=== PATIENT | male | born 1960 | race Caucasian/White ===

== ENCOUNTER → 2016-11-15 | Outpatient (CLI) | payer MEDICAID ==
[2016-11-15 10:00] LABS: EKG EKG PERFORMED
[2016-11-15 10:21] LABS: CH 31.5; CHCM 32.4; HDW 2.41; MCH 31.7 pg (25.0-35.0); MCHC 32.5 g/dL (31.0-37.0); MCV 97.6 fL (80.0-100.0); Mean Platelet Volume 7.5; RBC 4.71 m/uL (4.30-5.90); RDW 13.3 % (11.5-15.5)
[2016-11-15 11:05] LABS: Anion Gap 12 mmol/L; Blood Urea Nitrogen 12 mg/dL (9-20); Calcium 9.5 mg/dL (8.4-10.2); Carbon Dioxide 22 mmol/L (22-30); Chloride 108 mmol/L (98-107); Glucose 111 mg/dL (74-99); Non-African American GFR(MDRD) >60 (>60 ml/min/1.73 sqM); Potassium 5.3 mmol/L (3.5-5.1); Sodium 142 mmol/L (137-145)
== END | disposition home or self-care (01) ==
LOC: LABPAT 09:36
PROVIDERS: ATTEND Urology
DX: Z01.818 Encounter for other preprocedural examination (principal); C67.2 Malignant neoplasm of lateral wall of bladder; R53.83 Other fatigue
CPT/HCPCS: 80048; 85027; 93005

== ENCOUNTER 2016-11-19 08:28 | Day surgery (SDC) | payer MEDICAID ==
[2016-11-17 11:49] VITALS: BMI 25.1
[~2016-11-19 08:28] MED LIST: DEXAMETHASONE SOD PHOSPHATE 10 MG/ML 1 ML VIAL IV ONE; HYDROmorphone 1 MG/ML 1 ML SYRINGE IVP PRN; LACTATED RINGERS 1,000 ML IV SCH; MIDAZOLAM 2 MG/2 ML VIAL IV PRN; ONDANSETRON 4 MG/2 ML VIAL IVP ONE; Pre Op ABX Message 1 EACH MISC MISCELLANE ONE; SCOPOLAMINE 1.5MG/72HR PATCH TRANSDERM ONE
[2016-11-19 08:43] VITALS: RESP 16
[2016-11-19] MEDS ORDERED: LIDOCAINE 1% 20 ML VIAL (10MG/ML) FOR IV START INTRADERMA ONE (08:50)
[2016-11-19] MEDS ORDERED: MITOMYCIN IV ONE (09:26)
[2016-11-19] MEDS ORDERED: MITOMYCIN MISCELLANE ONE ×2 (09:27→10:15)
[2016-11-19] MEDS ORDERED: ePHEDrine 50 MG/ML 1 ML AMP ONE (09:28)
[2016-11-19] MEDS ORDERED: fentaNYL (PF) 50 MCG/ML 2 ML AMP ONE (09:28)
[2016-11-19] MEDS ORDERED: SUCCINYLCHOLINE CHLORIDE 100 MG/5 ML SYR IV ONE (09:28)
[2016-11-19] MEDS ORDERED: LIDOCAINE 1% INJ 10MG/ML (20 ML MDV) ONE (09:28)
[2016-11-19] MEDS ORDERED: PROPOFOL 10 MG/ML 20 ML VIAL IV ONE (09:28)
[2016-11-19] MEDS ORDERED: MIDAZOLAM 2 MG/2 ML VIAL ONE (09:28)
[2016-11-19] MEDS ORDERED: IOHEXOL 350 MG/ML 50ML BOTTLE MISCELLANE ONE ×2 (10:03)
[2016-11-19] MEDS ORDERED: BELLADONNA-OPIUM 16.2-60 MG 1 EACH SUPP RECTAL ONE (10:24)
[2016-11-19 10:37] VITALS: TEMP 97.3
[2016-11-19] MEDS ORDERED: LEVOFLOXACIN 500MG-D5W PMX 500 MG in DEXTROSE/WATER 1 100ML.BAG IVPB STA (11:00)
--- NOTE | 2016-11-19 11:04 | FL ---
Fluoroscopy HISTORY: Pain 21 seconds fluoroscopy time supplied to the referring clinician. 8 intraoperative C-arm images docum ent the procedure. See dictated report from urology.
[2016-11-19 11:59] VITALS: BP 124/60; PULSE 90
--- NOTE | 2016-11-19 20:29 | OP ---
DATE OF SERVICE: 11/19/2016 SURGEON: BIBI CONTRERAS MD PREOPERATIVE DIAGNOSIS: Bladder cancer. POSTOPERATIVE DIAGNOSIS: Bladder cancer. OPERATION: Cystoscopy with bilateral retrograde pyelograms, transurethral resection of bladder tumors, and intravesical mitomycin-C instillation. ANESTHESIA: General. The patient is a 56-year-old male with a history of terminal hematuria. Cystoscopy performed in my office identified a papillary tumor on the left lateral wall near the bladder neck. Transurethral resection of the tumor and bilateral retrograde pyelograms are planned for further evaluation. PROCEDURE: The patient was taken the operating suite, where adequate general anesthesia via orotracheal intubation was instituted. The patient was placed in the dorsal lithotomy position with his legs suspended from padded Demetris stirrups. Pneumatic compression stockings were applied to the lower legs. The genitalia was prepped with Betadine soap, painted with Betadine solution and draped in a sterile fashion. Penile and prostatic urethra were traversed under direct vision using the 22 [place] cystoscope sheath and 30-degree lens. Anterior urethra was free of inflammatory lesion, tumor and stricture. Prostatic urethra showed evidence of moderate lateral lobe enlargement. No urothelial abnormalities were noted. The bladder was examined. Both ureteral orifices were of normal location and configuration and effluxed clear urine. Just inside the bladder neck on the left wall of the bladder was a papillary tumor measuring approximately 2 cm in greatest diameter. A smaller papillary tumor was located more medially and measured 4 or 5 mm in diameter. The findings were consistent with transitional cell carcinoma. Bilateral retrograde pyeloureterograms were performed using an 8 [place] cone-tipped catheter. The ureters and intrarenal collecting system on each side appeared normal. The cystoscope was withdrawn. The 25 [place] resectoscope sheath with visual obturator and 30-degree lens was passed through the urethra and into the bladder under direct vision. The tumors on the left wall of the bladder were resected down to the underlying muscle. Bleeding vessels were controlled using electrocautery. At the completion of procedure, no visible tumor remained. The base of each tumor site was then re-cauterized. The tumor fragments were removed from the bladder through the resectoscope and the resectoscope was withdrawn. The 16 [place] Rojas catheter was inserted; 20 mg of mitomycin-C and 20 mL of water was instilled into the bladder and the catheter was plugged. The patient tolerated the procedure well and left the operating room awake and in satisfactory condition. Blood loss during the procedure was less than 2 or 3 mL. There were no intraoperative complications. Mitomycin-C will be drained from the bladder in 2 hours. The catheter will remain in place for 48 to 72 hours. Further recommendations are dependent on the results of the tissue analysis. MTDD
== END 2016-11-19 12:25 | disposition home or self-care (01) ==
LOC: OR 08:28
PROVIDERS: ATTEND Urology
DX: C67.2 Malignant neoplasm of lateral wall of bladder (principal); N40.0 Benign prostatic hyperplasia without lower urinary tract symptoms; Z79.899 Other long term (current) drug therapy; Z87.891 Personal history of nicotine dependence
CPT/HCPCS: 84132; 88307; 74420; 52234; 52224; 53899; C1758; C2627; J2250; J1100; J2405; J2001; J9280; J3010; J0330; J2704; Q9967

== ENCOUNTER 2017-01-28 13:35 | Day surgery (SDC) | payer MEDICAID ==
[2017-01-27 10:38] VITALS: BMI 25.1
[~2017-01-28 13:35] MED LIST changes: -DEXAMETHASONE SOD PHOSPHATE 10 MG/ML 1 ML VIAL IV ONE; -HYDROmorphone 1 MG/ML 1 ML SYRINGE IVP PRN; -LACTATED RINGERS 1,000 ML IV SCH; -MIDAZOLAM 2 MG/2 ML VIAL IV PRN; -ONDANSETRON 4 MG/2 ML VIAL IVP ONE; -SCOPOLAMINE 1.5MG/72HR PATCH TRANSDERM ONE
[2017-01-28] MEDS ORDERED: LIDOCAINE 1% 20 ML VIAL (10MG/ML) FOR IV START INTRADERMA ONE (13:49)
[2017-01-28] MEDS ORDERED: LACTATED RINGERS 1,000 ML IV ONE ×2 (13:49)
[2017-01-28] MEDS ORDERED: ONDANSETRON 4 MG/2 ML VIAL IVP ONE (13:55)
[2017-01-28] MEDS ORDERED: DEXAMETHASONE SOD PHOSPHATE 10 MG/ML 1 ML VIAL IV ONE (13:56)
[2017-01-28] MEDS ORDERED: PROPOFOL 10 MG/ML 20 ML VIAL IV ONE (15:36)
[2017-01-28] MEDS ORDERED: fentaNYL (PF) 50 MCG/ML 2 ML AMP ONE (15:36)
[2017-01-28] MEDS ORDERED: ePHEDrine 50 MG/ML 1 ML AMP ONE (15:36)
[2017-01-28] MEDS ORDERED: MIDAZOLAM 2 MG/2 ML VIAL ONE (15:36)
[2017-01-28] MEDS ORDERED: LIDOCAINE 1% INJ 10MG/ML (20 ML MDV) ONE (15:36)
[2017-01-28 16:30] VITALS: TEMP 97.8
[2017-01-28 16:54] VITALS: RESP 18
[2017-01-28 17:34] VITALS: BP 150/82; PULSE 65
--- NOTE | 2017-01-28 22:47 | OP ---
DATE OF SERVICE: SURGEON: BIBI CONTRERAS MD PREOPERATIVE DIAGNOSIS: History of bladder cancer. POSTOPERATIVE DIAGNOSIS: History of bladder cancer. OPERATION: Cystoscopy with transurethral biopsies of bladder. ANESTHESIA: General anesthesia. INDICATIONS: The patient is a 56-year-old male who underwent transurethral resection of a tumor near the left side of the bladder neck in 10/28/2016. The tumor was low grade stage TA. The patient received one dose of intravesical mitomycin-C immediately postoperatively. He developed gross hematuria approximately one week ago. Cystoscopy performed earlier this week showed no evidence of tumor recurrence in the region of the original bladder tumor. The patient had an area of marked erythema with hemorrhage and edema on the posterior bladder wall of uncertain significance. It is unclear whether this was a somewhat delayed mitomycin reaction, or recurrent bladder tumor or from process extrinsic to the bladder. Transurethral biopsy of the area is planned. PROCEDURE: The patient was taken the operating suite where adequate general anesthesia via LMA was instituted. The patient was placed in the dorsal lithotomy position with his legs suspended from padded Demetris stirrups. The genitalia was prepped with Betadine soap, painted with Betadine solution, and draped in a sterile fashion. The urethral meatus was dilated to occlude 26 Ukrainian using a Sterling sound. The 25 Ukrainian resectoscope sheath with visual obturator and 30 degrees lens was passed through the anterior urethra under direct vision. Anterior urethra was free of inflammatory lesion, tumor and stricture. Prostatic urethra showed moderate lateral lobe enlargement. No urothelial abnormalities were noted. The bladder was examined. Both ureteral orifices were of normal location and configuration and effluxed clear urine. On the left anterolateral bladder wall near the bladder neck was an area of scarring with minimal erythema. On the posterior bladder wall near dome was an area measuring at least 3 cm in diameter with marked erythema and submucosal hemorrhage along with edema. There was no papillary appearance to the abnormality. Several areas appeared to have bled recently. The remainder of the bladder was unremarkable. Using the continuous flow Salazar resectoscope and loop cutting electrode, approximately 50% of the abnormality on the posterior bladder wall was resected for pathologic analysis. Bleeding was minimal if any and was controlled with electrocautery. The biopsy fragments were retrieved from the bladder through the resectoscope. The resectoscope was withdrawn. An 18 [place] Coude Rojas catheter was inserted and was left to gravity drainage. The patient tolerated the procedure well and left the operating room awake and in satisfactory condition. There was essentially no blood loss. The patient's catheter will remain in place for 48 hours prior to removal. Further recommendations are dependent on the biopsies. MEHDI
== END 2017-01-28 17:35 | disposition home or self-care (01) ==
LOC: OR 13:35
PROVIDERS: ATTEND Urology
DX: C67.4 Malignant neoplasm of posterior wall of bladder (principal); N30.01 Acute cystitis with hematuria; N30.21 Other chronic cystitis with hematuria; F17.200 Nicotine dependence, unspecified, uncomplicated; N40.0 Benign prostatic hyperplasia without lower urinary tract symptoms; Z80.0 Family history of malignant neoplasm of digestive organs; Z80.9 Family history of malignant neoplasm, unspecified; Z79.899 Other long term (current) drug therapy; Z88.0 Allergy status to penicillin
CPT/HCPCS: 52235; 88305; J2250; J1100; J2405; J2001; J3010; J2704

== ENCOUNTER → 2020-05-21 | Outpatient (CLI) | payer MEDICAID ==
--- NOTE | 2020-05-21 15:14 | CT ---
EXAMINATION TYPE: CT abdomen pelvis w con DATE OF EXAM: 05/21/2020 COMPARISON: None INDICATION: Lower LQ abdominal pain. Hx diverticulitis. DLP: 658 mGycm, Automated exposure control for dose reduction was used. CONTRAST: 100 mL of Isovue 300. Study performed with Oral Contrast TECHNIQUE: Axial images were obtained from above the diaphragm to the pubic rami in the axial plane a t 5 mm thick sections. Reconstructed images are reviewed on the computer in the coronal plane. FINDINGS: Limited CT sections are obtained the lung bases. There is a small hiatal hernia.. CT ABDOMEN: Liver: Normal Spleen: Normal Pancreas: Normal Adrenal glands: The adrenal glands are normal. Gallbladder: Normal Kidneys: No masses are evident. No hydronephrosis is present. No cysts are present. Delayed images were obtained through the kidneys, which remain unremarkable. Aorta: Vascular calcification is within the aorta. Inferior vena cava: Normal. CT PELVIS: There is diffuse thickening through the proximal sigmoid colon. Inflammatory changes adjacent. Multip le diverticuli are present. Findings can be compatible with acute diverticulitis. Follow-up is recomm ended. Early abscess formation along the anterior wall may be present with a hypodensity measuring 1. 5 x 1.1 cm. Series 3 image 66. There are loops of bowel which are incompletely distended or lack ora l contrast limiting their evaluation. Appendix: Normal as visualized. Urinary bladder: Normal. Genitourinary structures: Prostate is somewhat prominent. Osseous structures: No suspicious lytic or sclerotic lesions. Degenerative disc changes are present L 5-S1. IMPRESSIONS: 1. Mild appearing diverticulitis within the proximal sigmoid colon. However, early 1.5 x 1.0 cm absc ess formation may be present. Follow-up is recommended.
== END | disposition home or self-care (01) ==
LOC: RADCTMAIN 12:52
PROVIDERS: ATTEND Family Medicine
DX: K57.92 Diverticulitis of intestine, part unspecified, without perforation or abscess without bleeding (principal)
CPT/HCPCS: 74177; Q9967

== ENCOUNTER → 2020-05-26 | Outpatient (CLI) | payer MEDICAID ==
--- NOTE | 2020-05-26 12:46 | CT ---
EXAMINATION TYPE: CT abdomen pelvis w con DATE OF EXAM: 05/26/2020 COMPARISON: 05/21/2020 HISTORY: Follow up for diverticulitis CT DLP: 580.3 mGycm Automated exposure control for dose reduction was used. CONTRAST: CT scan of the abdomen pelvis is performed with IV Contrast, patient injected with 100 mL of Isovue 3 00. FINDINGS- LUNG BASES-subsegmental changes at the lung bases most typical of atelectasis.. LIVER/GB- No gross abnormality is appreciated. PANCREAS- No gross abnormality is seen. SPLEEN- No gross abnormality is seen. ADRENALS- No gross abnormality is seen. KIDNEYS/BLADDER- no hydronephrosis nephrolithiasis or renal mass. BOWEL-severe wall thickening of the sigmoid colon with surrounding inflammatory changes. No sizable a bscess. Multiple diverticula. Findings compatible with acute diverticulitis similar in appearance to the prior exam. There is marked esophageal wall thickening. LYMPH NODES- No greater than 1cm abdominal or pelvic lymph nodes areappreciated. OSSEOUS STRUCTURES-degenerative changes of the lower lumbar spine. OTHER- aorta of normal caliber. Mild atherosclerotic changes. IMPRESSION- 1. Acute sigmoid diverticulitis. The prior exam with no evidence of sizable abscess cavity. Follow to resolution to exclude other etiologies recommended. 2. There is thickening of the distal esophageal wall correlate clinically and if necessary with direc t visualization for esophagitis or mucosal lesion
== END | disposition home or self-care (01) ==
LOC: RADCTMAIN 11:47
PROVIDERS: ATTEND Family Medicine
DX: K57.32 Diverticulitis of large intestine without perforation or abscess without bleeding (principal)
CPT/HCPCS: 74177; Q9967

== ENCOUNTER → 2020-12-09 | Outpatient (CLI) | payer MEDICAID | END | disposition home or self-care (01) | LOC: LABWHC1 12:26 | PROVIDERS: ATTEND Family Medicine | DX: U07.1 COVID-19 (principal) | CPT/HCPCS: U0003; C9803; U0005 ==

== ENCOUNTER 2022-01-21 07:06 | Day surgery (SDC) | payer MEDICAID ==
[2022-01-20 09:17] VITALS: BMI 25.1
[2022-01-21] MEDS ORDERED: LACTATED RINGERS 1,000 ML IV SCH (07:19)
[2022-01-21 07:24] VITALS: TEMP 97.3
[2022-01-21] MEDS ORDERED: LIDOCAINE 1% (10MG/ML) FOR IV START INTRADERMA ONE (07:36)
--- NOTE | 2022-01-21 07:42 | P.GSHP ---
History of Present Illness H&P Date: 01/21/22 CHIEF COMPLAINT: Colon screen HISTORY OF PRESENT ILLNESS: The patient is a 61-year-old male who presents for colon screen. Lower endoscopy was offered for further evaluation and management. PAST MEDICAL HISTORY: Please see list. PAST SURGICAL HISTORY: Please see list. MEDICATIONS: Please see list. ALLERGIES: Please see list. SOCIAL HISTORY: No illicit drug use FAMILY HISTORY: No reports of Crohn disease or ulcerative colitis. REVIEW OF ORGAN SYSTEMS: CONSTITUTIONAL: No reports of fevers or chills. PHYSICAL EXAM: VITAL SIGNS: Stable GENERAL: Well-developed pleasant in no acute distress. HEENT: No scleral icterus. Extraocular movements grossly intact. Moist buccal mucosa. NECK: Supple without lymphadenopathy. CHEST: Unlabored respirations. Equal bilateral excursions. CARDIOVASCULAR: Regular rate and rhythm. Distal 2+ pulses. ABDOMEN: Soft, nontender, nondistended. MUSCULOSKELETAL: No clubbing, cyanosis, or edema. ASSESSMENT: 1. Colon screen. PLAN: 1. Recommend proceeding with a lower endoscopy Past Medical History Past Medical History: Cancer, Hypertension, Skin Disorder Additional Past Medical History / Comment(s): bladder cancer (rec chemo via cystoscopy October 2016),eczema, hx diverticulitis History of Any Multi-Drug Resistant Organisms: None Reported Past Surgical History: Bladder Surgery Additional Past Surgical History / Comment(s): cystoscopy,colonoscopy Past Anesthesia/Blood Transfusion Reactions: No Reported Reaction Smoking Status: Former smoker - Past Family History Brother(s) Family Medical History: Cancer Mother Family Medical History: Cancer Medications and Allergies Home Medications Medication Instructions Recorded Confirmed Type lisinopriL [Zestril] 10 mg PO DAILY 01/20/22 01/21/22 History Allergies Allergy/AdvReac Type Severity Reaction Status Date / Time Penicillins Allergy Rash/Hives Verified 01/21/22 07:19 Surgical - Exam Vital Signs Temp Pulse Resp BP Pulse Ox 97.3 F L 85 16 140/90 99 01/21/22 07:22 01/21/22 07:22 01/21/22 07:22 01/21/22 07:22 01/21/22 07:22
[2022-01-21] MEDS ORDERED: PHENYLEPHRINE-0.9% NACL SYG 1,000 MCG/10 ML SYRINGE ONE (08:07)
[2022-01-21] MEDS ORDERED: LIDOCAINE 2% INJ 20 MG/ML (2 ML VIAL) ONE (08:07)
[2022-01-21] MEDS ORDERED: PROPOFOL 10 MG/ML 20 ML VIAL IV ONE (08:07)
--- NOTE | 2022-01-21 08:33 | P.PCN ---
Date of Procedure: 01/21/22 Description of Procedure: PREOPERATIVE DIAGNOSIS: Personal history of colon polyps Family history colon cancer, brother Colonoscopy screening POSTOPERATIVE DIAGNOSIS: Personal history of colon polyps Family history colon cancer, brother Colonoscopy screening Tubular adenoma hepatic flexure Tubular adenoma ascending colon Pandiverticulosis, moderate to severe Sigmoid diverticulosis, moderate to severe Internal hemorrhoids, grade 2 OPERATION: Colonoscopy to the ileocecal valve and appendiceal orifice, cecum Colonoscopy with cold forceps biopsy SURGEON: Julienne Chi MD. ANESTHESIA: MAC. INDICATIONS: The patient is an 61-year-old male who presents family history of malignant colon polyps and personal history of colon polyps. Last colonoscopy 5 years. Benefits and risks were described and informed consent was obtained. DESCRIPTION OF PROCEDURE: The patient had undergone Sutab prep. The patient had been brought into the operating room and laid in the left lateral decubitus position. After adequate intravenous sedation, the rectum was examined with 2% lidocaine jelly. The prostate was unremarkable. External hemorrhoids were encountered. The rectal tone was within normal limits. No lesions were palpated in the rectal vault. An Olympus colonoscope was advanced until the cecum, ileocecal valve and appendiceal orifice were clearly viewed. The prep was fair. Sigmoid diverticulosis was encountered with pandiverticulosis. Colonic polyps were found and removed. No evidence of focal colitis was found. Retroflexion of the scope demonstrated grade 2 internal hemorrhoids without active bleeding or inflammation. The colon was desufflated. The patient had tolerated the procedure well. Withdrawal time was over 6 minutes. FINDINGS: Aronchick preparation quality scale 3 (1-5) Internal hemorrhoids, grade 2 External hemorrhoids, grade 1 No arteriovenous malformations. Sigmoid diverticulosis, moderate to severe Pandiverticulosis, moderate to severe Removal of 2 polyps: - Cold forceps biopsy at hepatic flexure, 4 mm polyp. - Cold forceps biopsy at ascending colon, 5 mm polyp. No focal colitis. RECOMMENDATIONS: Repeat colonoscopy in 3 years, 2024 Plan - Discharge Summary Discharge Rx Participant: Yes New Discharge Prescriptions: Continue lisinopriL [Zestril] 10 mg PO DAILY Discharge Medication List lisinopriL [Zestril] 10 mg PO DAILY 01/20/22 [History] Follow up Appointment(s)/Referral(s): Julienne Chi MD [STAFF PHYSICIAN] - As Needed Patient Instructions/Handouts: Diverticulosis Diet (GEN), Diverticulosis (GEN), Colorectal Polyps (GEN), Colonoscopy (GEN) Activity/Diet/Wound Care/Special Instructions: Repeat colonoscopy in 3 years, 2024 Discharge Disposition: HOME SELF-CARE
[2022-01-21 08:42] VITALS: RESP 16
[2022-01-21 08:59] VITALS: BP 93/51; PULSE 63
== END 2022-01-21 09:20 | disposition home or self-care (01) ==
LOC: ORWHC2ENDO 07:06
PROVIDERS: ATTEND Surgery Plastic and Reconstructive Surgery
DX: D12.2 Benign neoplasm of ascending colon (principal); D12.3 Benign neoplasm of transverse colon; K57.30 Diverticulosis of large intestine without perforation or abscess without bleeding; K64.8 Other hemorrhoids; I10 Essential (primary) hypertension; Z80.0 Family history of malignant neoplasm of digestive organs; Z85.51 Personal history of malignant neoplasm of bladder; Z87.891 Personal history of nicotine dependence; Z88.0 Allergy status to penicillin
CPT/HCPCS: 45380; 88305; J2370; J2704; J2001

== ENCOUNTER → 2024-07-31 | Outpatient (CLI) | payer MEDICAID, MEDICARE ==
--- NOTE | 2024-07-31 11:06 | XR ---
EXAMINATION TYPE: XR finger RT DATE OF EXAM: 07/31/2024 10:55 AM COMPARISON: None CLINICAL INDICATION: Male, 64 years old with history of M79.644 thumb pain; PHH, pain TECHNIQUE: XR finger RT 3views were obtained. FINDINGS: Thin linear density near the base of the first digit. Mild joint space tearing osteophyte f ormation the visualized joints. No evidence for fracture or dislocation. IMPRESSION: 1. No acute osseous pathology. 2. Possible radiopaque foreign body near the base of the first digit proximal phalanx base on the ra dial aspect. [facility], , 07/31/2024 11:03 AM
== END | disposition home or self-care (01) ==
LOC: RADXRMAIN 10:18
PROVIDERS: ATTEND Family Medicine
DX: M25.741 Osteophyte, right hand (principal)

== ENCOUNTER → 2024-08-08 | Outpatient (CLI) | payer MEDICAID, MEDICARE ==
--- NOTE | 2024-08-10 23:53 | CTL ---
EXAMINATION TYPE: CT Low Dose Lung DATE OF EXAM: 08/08/2024 9:46 AM COMPARISON: None. CLINICAL INDICATION: Male, 64 years old with history of Z12.2 LUNG CA SCR Z87.891 FORMER SMOKER, Form er smoker about 2 packs a day for 10 years. About 20 packs a year, Lung cancer screening, History of tobacco use. TECHNIQUE: Low dose computed tomography scan was performed through the chest at 1 mm thick sections a nd reconstructed images in the coronal plane at 1 mm thick sections. Contrast used: mL of , (none if empty) Oral contrast used: (none if empty) CT DLP: 59 mGycm, Automated exposure control for dose reduction was used. CT CTDI: 1.53 mGy, Automated exposure control for dose reduction was used. SCREENING VISIT: CT DIAGNOSTIC QUALITY: Satisfactory FINDINGS: LUNG NODULES: None. LUNGS: COPD: Severity: None Fibrosis: Severity: None Lymph nodes: None Other findings: None RIGHT PLEURAL SPACE: Effusion: None Calcification: None Thickening: None Pneumothorax: None LEFT PLEURAL SPACE: Effusion: None Calcification: None Thickening: None Pneumothorax: None HEART: Other: Ascending thoracic aorta at the level the main pulmonary artery measures 3.4 cm. The main pul monary artery at the bifurcation measures2.4 cm. Heart Size: Normal Coronary calcification: Minimal Pericardial effusion: None OTHER FINDINGS: Upper abdomen: The distal esophagus may be diffusely thickened. Underlying neoplasm is not excluded. Findings are somewhat similar to the comparison of 01/04/2023. Bony thorax: Normal Supraclavicular region: Normal IMPRESSION: 1. No suspicious lung findings. 2. There is diffuse thickening through the distal esophagus. Additional workup the distal esophagus i s recommended. FOLLOW UP CT CHEST RECOMMENDATION: Follow-up low-dose CT chest one year CT LUNG RAD: Lung-Rad 2 Benign Appearance or Behavior [facility], , 08/10/2024 11:50 PM
== END | disposition home or self-care (01) ==
LOC: RADCTMAIN 09:24
PROVIDERS: ATTEND Family Medicine
DX: Z12.2 Encounter for screening for malignant neoplasm of respiratory organs (principal); Z87.891 Personal history of nicotine dependence; K22.89 Other specified disease of esophagus
CPT/HCPCS: 71271

== ENCOUNTER 2024-09-14 09:36 | Day surgery (SDC) | payer MEDICARE, OTHER ==
[2024-09-14 10:10] VITALS: TEMP 97.1
[2024-09-14] MEDS: LACTATED RINGERS 1,000 ML IV ONE (10:15)
[2024-09-14] MEDS: LACTATED RINGERS 1,000 ML IV SCH (10:15)
[2024-09-14] MEDS ORDERED: PROPOFOL 10 MG/ML 20 ML VIAL IV ONE (10:31)
--- NOTE | 2024-09-14 10:42 | P.PCN ---
Date of Procedure: 09/14/24 Procedure(s) Performed: BRIEF HISTORY: Patient is a 64-year-old, pleasant, white male scheduled upper endoscopy as a part of evaluation of abnormal PET scan that was done in July 2020 for as a part of follow-up of the lung lesion. It revealed thickening of the distal esophagus and hence he scheduled for an upper endoscopy to evaluate further. He denies any heartburn, dysphagia, abdominal pain or nausea vomiting.. PROCEDURE PERFORMED: Esophagogastroduodenoscopy biopsy. PREOPERATIVE DIAGNOSIS: Abnormal PET scan showing thickening of the distal esophagus mass. IV sedation per anesthesia. PROCEDURE: After informed consent was obtained, the patient was brought into the endoscopy unit. IV sedation was administered by Anesthesia under continuous monitoring. Initially the Olympus GIF-140 video endoscope was inserted into the mouth. Esophagus intubated without any difficulty. It was gradually advanced into the distal esophagus and there was some tightness of the lower esophagus and the noted. I was able to advance the scope into the stomach and duodenum and carefully examined. The bulb had a 5 mm superficial duodenal ulcer noted and the second part of the duodenum appeared normal. The scope at this time was withdrawn to the stomach, adequately insufflated with air, and upon careful examination, mucosa of the antrum, patchy erythema noted. Biopsies were done from this area. Mucosa of the body, cardia and the fundus appeared normal. The scope was then withdrawn into the esophagus. The GE junction was located at 41 cm from the incisors. The esophagus appeared normal. There were no erosions or ulcerations seen. There was some tightness of the lower esophageal sphincter identified but no stricture seen. Rest of the esophagus appeared normal and the patient tolerated the procedure well. IMPRESSION: 1. Normal-appearing esophagus with no evidence of esophagitis, esophageal stricture or esophageal mass. 2. 5 mm superficial duodenal ulcer and mild gastritis. RECOMMENDATIONS: The findings of this examination were discussed with the patient as well as his family. He was advised to follow with the biopsy results.. Recommend paraseptal milligrams daily for 6 weeks. Void NSAIDs.
[2024-09-14 10:45] VITALS: PULSE 71
[2024-09-14 10:59] VITALS: BP 112/72; RESP 18
== END 2024-09-14 11:15 | disposition home or self-care (01) ==
LOC: ORWHC2ENDO 09:36
PROVIDERS: ATTEND Internal Medicine Gastroenterology
DX: K29.50 Unspecified chronic gastritis without bleeding (principal); K26.9 Duodenal ulcer, unspecified as acute or chronic, without hemorrhage or perforation; K22.89 Other specified disease of esophagus; I10 Essential (primary) hypertension; F41.9 Anxiety disorder, unspecified; C67.9 Malignant neoplasm of bladder, unspecified; Z88.0 Allergy status to penicillin; Z79.899 Other long term (current) drug therapy
CPT/HCPCS: 88305; 43239; J2704